=== PATIENT | female | born 1995 | race African-American/Black ===

== ENCOUNTER 2017-10-12 20:51 | Emergency (ER) | payer BC ==
[2017-10-12 21:05] VITALS: BP 139/78
== END 2017-10-12 23:15 | disposition left against medical advice (07) ==
LOC: ER 20:51
DX: Z53.21 Procedure and treatment not carried out due to patient leaving prior to being seen by health care provider (principal)

== ENCOUNTER 2019-08-03 13:54 | Emergency (ER) | payer SELFPAY ==
[2019-08-03 14:19] LABS: ABSOLUTE BASOPHILS # (AUTO) 0.1 10^3/uL (0.0-0.2); ABSOLUTE EOSINOPHILS # (AUTO) 0.2 10^3/uL (0.0-0.6); ABSOLUTE LYMPHOCYTES (AUTO) 2.5 10^3/uL (0.5-4.7); ABSOLUTE MONOCYTES (AUTO) 0.5 10^3/uL (0.1-1.4); BASOPHILS % (AUTO) 0.9 % (0-2); EOSINOPHILS % (AUTO) 2.3 % (0-6); HEMATOCRIT 34.1 % (36.0-47.0); HEMOGLOBIN 11.5 g/dL (12.0-15.5); LYMPHOCYTES % (AUTO) 30.1 % (13-45); MEAN CORPUSCULAR HEMOGLOBIN 27.7 pg (27.0-33.4); MEAN CORPUSCULAR HGB CONC 33.9 g/dL (32.0-36.0); MEAN CORPUSCULAR VOLUME 82 fl (80-97); MONOCYTES % (AUTO) 5.6 % (3-13); RED BLOOD COUNT 4.16 10^6/uL (3.72-5.28); RED CELL DISTRIBUTION WIDTH 13.8 % (11.5-14.0); SEGMENTED NEUTROPHILS % (AUTO) 61.1 % (42-78); TOTAL CELLS COUNTED % (AUTO) 100 %; WHITE BLOOD COUNT 8.1 10^3/uL (4.0-10.5)
[2019-08-03] MEDS ORDERED: NORMAL SALINE 1000 ML 1,000 ML IV ONE (14:37)
[2019-08-03 14:38] LABS: ALBUMIN 3.9 g/dL (3.5-5.0); ALKALINE PHOSPHATASE 46 U/L (38-126); ANION GAP 11 (5-19); ASPARTATE AMINO TRANSFERASE 20 U/L (14-36); BILIRUBIN,TOTAL 0.3 mg/dL (0.2-1.3); BLOOD UREA NITROGEN 11 mg/dL (7-20); CALCIUM 9.6 mg/dL (8.4-10.2); CARBON DIOXIDE 20 mmol/L (22-30); CHLORIDE 106 mmol/L (98-107); GLUCOSE 219 mg/dL (75-110); POTASSIUM 4.2 mmol/L (3.6-5.0); TOTAL PROTEIN 7.2 g/dL (6.3-8.2)
--- NOTE | 2019-08-03 14:39 | ER Document Report ---
ED Syncope and Near Syncope - General Chief Complaint: Syncope Stated Complaint: SYNCOPE Time Seen by Provider: 08/03/19 14:21 Primary Care Provider: MARCO PALENCIA MD [[facility]] - Follow up as needed Mode of Arrival: Medic Information source: Patient Notes: Patient states that she was at the [facility] agency around 2 PM and felt hot leaned over a desk and then fainted. Patient states that her family tried to get her to stand up and then she passed out again. Patient states that she did not finally sit up and they gave her a popsicle. Patient states that she did eat breakfast but did not eat lunch today. Patient states that she has had a syncopal episode similar to this in the past. No seizure activity was noted. Patient denies any cough cold symptoms or shortness of breath. Patient denies any chest pain or headache. Patient presently denies any complaints at this time. Patient states she did see her tongue presser about 3 weeks ago and had a 24-hour heart monitor that did not show any abnormalities. TRAVEL OUTSIDE OF THE [place] IN LAST 30 DAYS: No - HPI Patient complains to provider of: Fainting Episode witnessed (by whom): Yes Symptoms prior to episode: Other - [place] hot and like she was melting into the floor. No: Palpitations, Short of breath Quality of pain: No pain Pain Level: Denies Context: Lost consciousness. denies: Confused after event Injury location: None Current symptoms: denies: Breathing difficulty, Diarrhea, Dizziness, Short of breath, Vomiting Similar symptoms previously: Yes Recently seen / treated by doctor: No - Related Data Allergies/Adverse Reactions: No Known Allergies Allergy (Unverified 11/02/13 08:51) Home Medications: novolog, BC Past Medical History - General Information source: Patient - Social History Smoking Status: Never Smoker Frequency of alcohol use: None Drug Abuse: None Occupation: None Lives with: Family Family History: Reviewed & Not Pertinent Patient has homicidal ideation: No - Past Medical History Cardiac Medical History: Reports: Hx Hypertension Endocrine Medical History: Reports: Hx Diabetes Mellitus Type 1, Hx Diabetes Mellitus Type 2 - insulin Renal/ Medical History: Reports: Hx Ovarian Cysts Past Surgical History: Reports: Hx Gynecologic Surgery - ovary removed, Other - Gastric sleeve - Immunizations Immunizations up to date: Yes Hx Diphtheria, Pertussis, Tetanus Vaccination: Yes Review of Systems - Review of Systems Constitutional: No symptoms reported. denies: Fever, Recent illness EENT: No symptoms reported Cardiovascular: Syncope. denies: Chest pain, Dyspnea Respiratory: No symptoms reported. denies: Cough, Short of breath Gastrointestinal: No symptoms reported. denies: Abdominal pain, Nausea, Vomiting Genitourinary: No symptoms reported. denies: Dysuria Female Genitourinary: No symptoms reported Musculoskeletal: No symptoms reported. denies: Back pain, Neck pain Skin: No symptoms reported Hematologic/Lymphatic: No symptoms reported Neurological/Psychological: No symptoms reported. denies: Weakness, Headaches Physical Exam - Vital signs Vitals: Temp Pulse Resp BP Pulse Ox 98.9 F 92 18 124/71 98 08/03/19 14:05 08/03/19 14:05 08/03/19 14:05 08/03/19 14:05 08/03/19 14:05 - General General appearance: Appears well, Alert In distress: None - HEENT Head: Normocephalic, Atraumatic Eyes: Normal Conjunctiva: Normal Mouth/Lips: Normal Mucous membranes: Normal Pharynx: Normal Neck: Normal, Supple. No: Lymphadenopathy - Respiratory Respiratory status: No respiratory distress Chest status: Nontender Breath sounds: Normal. No: Rales, Rhonchi, Stridor, Wheezing Chest palpation: Normal - Cardiovascular Rhythm: Regular Heart sounds: S1 appreciated, S2 appreciated Murmur: No - Abdominal Inspection: Obese Distension: No distension Bowel sounds: Normal Tenderness: Nontender Organomegaly: No organomegaly - Back Back: Normal, Nontender. No: CVA tenderness - Extremities General upper extremity: Normal inspection, Normal strength General lower extremity: Normal inspection, Normal strength - Neurological Neuro grossly intact: Yes Cognition: Normal Mark Coma Scale Eye Opening: Spontaneous Mark Coma Scale Verbal: Oriented Shila Coma Scale Motor: Obeys Commands Mark Coma Scale Total: 15 - Psychological Associated symptoms: Normal affect, Normal mood - Skin Skin Temperature: Warm Skin Moisture: Dry Skin Color: Normal Course - Re-evaluation Re-evalutation: 08/03/19 15:48 Patient with stable vital signs and without any complaints at this time. Patient denies any chest pain lightheadedness or dizziness. Orthostatic vitals completed, patient with stable vital signs. EKG reviewed. Patient with mild anemia on her CBC although not at a level that would require transfusion. Consulted with Dr. Winter regarding patient presentation diagnostic evaluation. No additional testing advised at this time. - Vital Signs Vital signs: Temp Pulse Resp BP Pulse Ox 99.0 F 74 19 136/77 H 98 08/03/19 16:27 08/03/19 16:27 08/03/19 16:27 08/03/19 16:27 08/03/19 16:27 - Laboratory Result Diagrams: 08/03/19 14:00 08/03/19 14:00 Laboratory results interpreted by me: 08/03/19 08/03/19 14:00 14:00 Hgb 11.5 L Hct 34.1 L Carbon Dioxide 20 L Glucose 219 H Labs- All tests 24 hr 08/03/19 08/03/19 08/03/19 14:00 14:00 14:00 WBC 8.1 RBC 4.16 Hgb 11.5 L Hct 34.1 L MCV 82 MCH 27.7 MCHC 33.9 RDW 13.8 Plt Count 275 Lymph % (Auto) 30.1 [place] % (Auto) 5.6 Eos % (Auto) 2.3 Baso % (Auto) 0.9 Absolute Neuts (auto) 5.0 Absolute Lymphs (auto) 2.5 Absolute Monos (auto) 0.5 Absolute Eos (auto) 0.2 Absolute Basos (auto) 0.1 Seg Neutrophils % 61.1 D-Dimer Sodium 137.3 Potassium 4.2 Chloride 106 Carbon Dioxide 20 L Anion Gap 11 BUN 11 Creatinine 0.72 Est GFR ( Amer) > 60 Est GFR (MDRD) Non-Af > 60 Glucose 219 H Calcium 9.6 Total Bilirubin 0.3 Direct Bilirubin 0.0 Neonat Total Bilirubin Not Reportable Neonat Direct Bilirubin Not Reportable Neonat Indirect Bili Not Reportable AST 20 ALT 13 Alkaline Phosphatase 46 Troponin I < 0.012 Total Protein 7.2 Albumin 3.9 Serum HCG, Qual 08/03/19 08/03/19 14:00 14:00 WBC RBC Hgb Hct MCV MCH MCHC RDW Plt Count Lymph % (Auto) [place] % (Auto) Eos % (Auto) Baso % (Auto) Absolute Neuts (auto) Absolute Lymphs (auto) Absolute Monos (auto) Absolute Eos (auto) Absolute Basos (auto) Seg Neutrophils % D-Dimer 0.32 Sodium Potassium Chloride Carbon Dioxide Anion Gap BUN Creatinine Est GFR ( Amer) Est GFR (MDRD) Non-Af Glucose Calcium Total Bilirubin Direct Bilirubin Neonat Total Bilirubin Neonat Direct Bilirubin Neonat Indirect Bili AST ALT Alkaline Phosphatase Troponin I Total Protein Albumin Serum HCG, Qual NEGATIVE - Diagnostic Test Radiology reviewed: Reports reviewed - EKG Interpretation by Me EKG shows normal: Sinus rhythm Rate: Normal Voltage: Increased voltage When compared to previous EKG there are: No significant change Additional EKG results interpreted by me: 08/03/19 15:49 QTC 436, no acute ischemic changes, no significant change as compared to prior Discharge - Discharge Clinical Impression: Syncope Qualifiers: Syncope type: unspecified Qualified Code(s): R55 - Syncope and collapse Condition: Stable Disposition: HOME, SELF-CARE Instructions: Syncopal Episode ([facility]) Additional Instructions: Return immediately for any new or worsening symptoms Followup with your primary care provider, call tomorrow to make a followup appointment Follow-up with your tongue presser for recheck, call tomorrow to make a follow-up appointment Be sure to eat regularly spaced meals throughout the day with occasional snacks. Referrals: MARCO PALENCIA MD [[facility]] - Follow up as needed
[2019-08-03 14:41] LABS: PLATELET COUNT 275 10^3/uL (150-450)
--- NOTE | 2019-08-03 15:23 | RADIOLOGY REPORT (SQ) ---
EXAM DESCRIPTION: CHEST SINGLE VIEW IMAGES COMPLETED DATE/TIME: 08/03/2019 3:13 pm REASON FOR STUDY: syncope COMPARISON: 09/12/2014 EXAM PARAMETERS: NUMBER OF VIEWS: One view. TECHNIQUE: Single frontal radiographic view of the chest acquired. RADIATION DOSE: NA LIMITATIONS: None. FINDINGS: LUNGS AND PLEURA: No opacities, masses or pneumothorax. No pleural effusion. MEDIASTINUM AND HILAR STRUCTURES: No masses. Contour normal. HEART AND VASCULAR STRUCTURES: Heart normal in size. Normal vasculature. BONES: No acute findings. HARDWARE: None in the chest. OTHER: No other significant finding. IMPRESSION: NO ACUTE RADIOGRAPHIC FINDING IN THE CHEST. TECHNICAL DOCUMENTATION: JOB ID: [id number] 2010 [employer]- All Rights Reserved Reading location - IP/workstation name: [email or web address]
[2019-08-03 16:28] VITALS: BP 136/77
--- NOTE | 2019-08-03 23:30 | EKG REPORT ---
SEVERITY:- ABNORMAL ECG - SINUS RHYTHM CONSIDER LEFT VENTRICULAR HYPERTROPHY : Confirmed by: Marilin Vaz 03-Aug-2019 23:29:35
== END 2019-08-03 16:28 | disposition home or self-care (01) ==
LOC: ER 13:54
DX: R55 Syncope and collapse (principal); I10 Essential (primary) hypertension; E11.9 Type 2 diabetes mellitus without complications; Z79.4 Long term (current) use of insulin; Z79.3 Long term (current) use of hormonal contraceptives
CPT/HCPCS: 93005; 99284; 96360; 96361; 36415; 84703; 85025; 80053; 84484; 85379; 71045; 93010; J7030